=== PATIENT | female | born 1980 | race Caucasian/White ===

== ENCOUNTER → 2021-04-21 | Outpatient (CLI) | payer OTHER ==
--- NOTE | 2021-04-21 14:37 | RAD ---
EXAMINATION: CT MAXILLOFACIAL WITHOUT CONTRAST CLINICAL HISTORY: DEVIATED NASAL SEPTUM, SNORING, MOUTH BREATHING Technique: Spiral high resolution axial unenhanced images were obtained through the facial bones with sagittal and coronal planar reconstructions. CT Dose Reduction Employed: One or more of the following individualized dose reduction techniques wer e utilized for this examination: 1. Automated exposure control 2. Adjustment of the mA and/or kV ac cording to patient size 3. Use of iterative reconstruction technique. COMPARISON: None FINDINGS: Soft Tissues: No significant superficial soft tissue swelling. Borderline enlarged level 2A cervical lymph node on the right measuring up to 1.5 cm in long axis (series 2 image 25), nonspecific. Additio nal prominent but nonenlarged cervical lymph nodes bilaterally. Facial Bones: No evidence of acute facial bone fracture. Orbits: No evidence of acute orbital fracture. Globes are intact. Soft tissue planes of the orbits ma intained. Paranasal Sinuses: No significant sinus disease. Mild nasal septal deviation to the right. IMPRESSION: Mild nasal septal deviation to the right. Borderline enlarged level 2A right cervical lymph node, nonspecific but may be reactive. Electronically signed by: Loinel Noriega DO (04/21/2021 2:34 PM) [facility]
== END ==
LOC: EDUNIT# 13:00 → CT 13:09
PROVIDERS: ATTEND Otolaryngology Plastic Surgery within the Head & Neck
DX: J34.2 Deviated nasal septum (principal); R59.9 Enlarged lymph nodes, unspecified
CPT/HCPCS: 70486

== ENCOUNTER → 2021-04-21 | Outpatient (CLI) | payer OTHER ==
--- NOTE | 2021-04-23 09:02 | SLEEP ---
DATE OF STUDY: 04/22/2021 HOME SLEEP STUDY ATTENDING PHYSICIAN: Dr. Oracio Su. The patient is 40 years old who weighs 190 pounds with a BMI of 29.8. The patient's Cleveland score was 14. The patient underwent home sleep study performed by [facility]. Total recording time was 430 minutes. During the night study, the patient had 1 obstructive apnea, 7 mixed apneas, 3 central apneas and 7 hypopneas. The patient's AHI was only 2.6 per hour. Nocturnal oximetry study revealed no significant desaturation. Lowest oxygen saturation was 89%. Mean heart rate 68 beats per minute. IMPRESSION: 1. No clinically significant sleep disorder breathing. The patient's apnea-hypopnea index for the entire night was 2.6 per hour. 2. No significant nocturnal hypoxia. RECOMMENDATIONS: 1. The patient does not meet the criteria for CPAP initiation due to low AHI. 2. The patient has subjective hypersomnia with an Cleveland score of 14. If clinical suspicion for other disorders such as narcolepsy is high, then consider doing multiple sleep latency test. 3. Review of sleep questionnaire also reveals average sleep of 3-4 hours on a nightly basis. This can also contribute to the patient's daytime symptoms. 4. Weight loss is advised. 5. Caution regarding driving until the patient's hypersomnia is resolved. MAURY/LAZARO DR: Damaris TID: [id number]
== END ==
LOC: RT 13:17
PROVIDERS: ATTEND Otolaryngology Plastic Surgery within the Head & Neck
DX: G47.33 Obstructive sleep apnea (adult) (pediatric) (principal); J34.3 Hypertrophy of nasal turbinates; R06.5 Mouth breathing; R06.83 Snoring; J43.2 Centrilobular emphysema
CPT/HCPCS: G0399